=== PATIENT | female | born 1960 | race Caucasian/White ===

== ENCOUNTER 2017-12-13 13:34 | Outpatient (CLI) | payer OTHER | END 2017-12-13 13:35 | disposition home or self-care (01) | LOC: BICRAD 13:34 | PROVIDERS: ATTEND Family Medicine | DX: M54.2 Cervicalgia (principal); R51 Headache; M47.892 Other spondylosis, cervical region | CPT/HCPCS: 72040 ==

== ENCOUNTER 2017-12-31 08:23 | Outpatient (CLI) | payer OTHER | END 2017-12-31 08:24 | disposition home or self-care (01) | LOC: BICMRI 08:23 | PROVIDERS: ATTEND Family Medicine | DX: M50.121 Cervical disc disorder at C4-C5 level with radiculopathy (principal); M47.892 Other spondylosis, cervical region; M99.81 Other biomechanical lesions of cervical region | CPT/HCPCS: 72141 ==

== ENCOUNTER 2018-04-25 16:08 | Outpatient (CLI) | payer OTHER ==
--- NOTE | 2018-04-25 18:10 | MRI ---
MRI BRAIN WITHOUT CONTRAST: Date: 04/25/18 HISTORY: Headache, vertigo, abnormal gait. FINDINGS: No restricted diffusion is seen. No evidence of infarct, hemorrhage, midline shift, or abnormal extra -axial fluid collections are noted. The ventricular size is appropriate and the basilar cisterns are patent. There are foci of T2 prolongation in the periventricular white matter consistent with mild ch ronic small vessel ischemic disease. The visualized paranasal sinuses and mastoid air cells are well aerated. No tonsillar herniation is seen. IMPRESSION: 1. No evidence of acute intracranial process. 2. Mild chronic small vessel ischemic disease. POS: [facility]
== END 2018-04-25 16:09 | disposition home or self-care (01) ==
LOC: TBSIIMAG 16:08
PROVIDERS: ATTEND Family Medicine
DX: R42 Dizziness and giddiness (principal); R51 Headache; I67.82 Cerebral ischemia
CPT/HCPCS: 70551

== ENCOUNTER 2023-10-20 13:28 | Outpatient (CLI) | payer BC | END 2023-10-20 13:29 | disposition home or self-care (01) | LOC: BICMAMMO 13:28 | PROVIDERS: ATTEND Family Medicine | DX: M85.851 Other specified disorders of bone density and structure, right thigh (principal); M85.852 Other specified disorders of bone density and structure, left thigh | CPT/HCPCS: 77080 ==

== ENCOUNTER 2024-11-13 14:31 | Outpatient (CLI) | payer OTHER | END 2024-11-13 14:32 | disposition home or self-care (01) | LOC: BICMAMMO 14:31 | PROVIDERS: ATTEND Family Medicine | DX: M85.851 Other specified disorders of bone density and structure, right thigh (principal); M85.852 Other specified disorders of bone density and structure, left thigh | CPT/HCPCS: 77080 ==